=== PATIENT | female | born 1970 | race Two or more races ===

== ENCOUNTER → 2020-06-11 12:23 | Outpatient (CLI) | payer OTHER ==
[~2020-06-11 12:23] MED LIST: DICLOFENAC POTA50 MG PO; MEDROLPACK PO; METAXALONE800 MG PO; METHOCARBAMOL750 MG PO
== END | disposition home or self-care (01) ==
LOC: LAB 12:23
PROVIDERS: ATTEND Physical Medicine & Rehabilitation
DX: R05 Cough (principal); R68.89 Other general symptoms and signs; Z03.818 Encounter for observation for suspected exposure to other biological agents ruled out

== ENCOUNTER 2025-01-07 01:19 | Emergency (ER) | payer OTHER ==
[~2025-01-07] VITALS: Ht 162.6 cm; Wt 54.4 kg
[2025-01-07] MEDS ORDERED: FAMOTIDINE/PF 20 MG/2 ML VIAL IV STA (02:06)
[2025-01-07] MEDS ORDERED: DICYCLOMINE HCL 20 MG TABLET PO STA (02:06)
[2025-01-07] MEDS ORDERED: ONDANSETRON HCL 2 MG/ML VIAL IV STA (02:06)
[2025-01-07] MEDS ORDERED: KETOROLAC TROMETHAMINE 15 MG VIAL IM STA (02:06)
[2025-01-07] MEDS ORDERED: 0.9 % SODIUM CHLORIDE 1,000 ML IV STA (02:07)
[2025-01-07] MEDS ORDERED: ONDANSETRON HCL 2 MG/ML VIAL ONE (02:14)
[2025-01-07] MEDS ORDERED: KETOROLAC TROMETHAMINE 30 MG VIAL ONE (02:14)
[2025-01-07] MEDS ORDERED: FAMOTIDINE/PF 20 MG/2 ML VIAL ONE (02:14)
[2025-01-07] MEDS ORDERED: DICYCLOMINE HCL 10 MG CAPSULE PO ONE (02:14)
[2025-01-07 03:10] LABS: BASO % 0.2 % (0.1-1.2); EOS # 0.31 (0.04-0.54); EOS % 3.0 % (0.7-7.0); LYMPH # 0.84 (1.18-3.74); LYMPH % 8.2 % (19.3-53.1); MEAN PLATELET VOLUME 10.50 fl (9.4-12.4); MONO # 0.73 (0.24-0.82); MONO % 7.1 % (4.7-12.5); NEUT # 8.28 (1.56-6.13); NEUT % 81.0 % (34.0-71.1); RED CELL DISTRIBUTION WIDTH 12.2 % (11.6-14.4)
[2025-01-07 03:20] LABS: ALT/SGPT 34.0 U/L (12-78); AST/SGOT 12.0 U/L (15-37); BILIRUBIN TOTAL 0.64 mg/dL (0.3-1.2); BUN CREA RATIO 21.0 (7.0-25.0); CREATININE SERUM 0.98 mg/dL (0.55-1.02); GFR 58.92; GLOBULINA 3.5 G/DL (2.4-3.5); GLUCOSE FASTING 102.0 mg/dL (65-100); OSMOLALITY SERUM 279.0 MOSM/KG (275-295)
[2025-01-07] MEDS ORDERED: CEFTRIAXONE SODIUM 1,000 MG VIAL IV STA (05:53)
[2025-01-07] MEDS ORDERED: PEPCID AC20 MG PO (05:56)
[2025-01-07] MEDS ORDERED: INTESTINEX680 M1 PO (05:56)
[2025-01-07] MEDS ORDERED: CIPRO500 MG PO (05:56)
[2025-01-07] MEDS ORDERED: DICY20TA PO (05:56)
[2025-01-07] MEDS ORDERED: CEFTRIAXONE SODIUM 1,000 MG VIAL ONE (06:02)
== END 2025-01-07 06:38 | disposition home or self-care (01) ==
LOC: ER 01:19
PROVIDERS: General Practice
DX: K52.89 Other specified noninfective gastroenteritis and colitis (principal)